=== PATIENT | female | born 1945 | race Caucasian/White ===

== ENCOUNTER → 2016-10-27 | Outpatient (CLI) | payer MEDICARE ==
[~2016-10-27] MED LIST: ASPI-COR81 M1 PO; ASPIRIN81 MG PO; ATENOLOL25 MG PO; ATIVAN0.5 MG PO; CATAFLAM50 MG PO; HYDROCODONE BIT1 T11 PO; LIPITOR20 MG PO; LISINOPRIL2.5 MG PO; LISINOPRIL5 MG PO; METFORMIN500 MG PO; PRILOSEC20 M1 PO; PRILOSEC20 MG PO; SENORMIN50 MG PO; ULTRAM50 MG PO; VICODIN 5/500 505 MG PO
[2016-10-27 08:13] LABS: HEMOGLOBIN A1c 5.4 % (4.8-5.6); MAGNESIUM 1.4 mg/dL (1.5-2.1); PHOSPHOROUS 3.4 mg/dL (2.5-4.9); POTASSIUM 4.3 mmol/L (3.5-5.1)
[2016-10-27 08:19] LABS: THYROID STIM HORMONE (HS) 1.28 uIU/ml (0.358-4.75)
[2016-10-27 09:14] LABS: VITAMIN D, 25-HYDROXY 39.9 ng/mL (30-100)
== END | disposition home or self-care (01) ==
LOC: LAB 07:08
PROVIDERS: Internal Medicine Endocrinology, Diabetes & Metabolism
DX: E11.9 Type 2 diabetes mellitus without complications (principal); I10 Essential (primary) hypertension; E78.5 Hyperlipidemia, unspecified; E04.2 Nontoxic multinodular goiter; L68.0 Hirsutism; L65.9 Nonscarring hair loss, unspecified; E66.9 Obesity, unspecified; R25.2 Cramp and spasm; R20.2 Paresthesia of skin; E53.9 Vitamin B deficiency, unspecified; E55.9 Vitamin D deficiency, unspecified

== ENCOUNTER → 2017-04-23 | Outpatient (CLI) | payer MEDICARE | END | disposition home or self-care (01) | LOC: MAMMO 07:12 | DX: Z12.31 Encounter for screening mammogram for malignant neoplasm of breast (principal) ==

== ENCOUNTER → 2017-04-27 | Outpatient (CLI) | payer MEDICARE ==
[2017-04-27 08:25] LABS: CREATININE 1.6 mg/dL (0.55-1.02); MAGNESIUM 1.8 mg/dL (1.5-2.1); POTASSIUM 4.8 mmol/L (3.5-5.1)
[2017-04-28 08:12] LABS: RHEUMATOID ARTHRITIS FACTOR <10.0 IU/mL (0.0-13.9)
== END | disposition home or self-care (01) ==
LOC: LAB 07:34
PROVIDERS: Family Medicine; Internal Medicine Endocrinology, Diabetes & Metabolism
DX: E11.9 Type 2 diabetes mellitus without complications (principal); I10 Essential (primary) hypertension; E78.5 Hyperlipidemia, unspecified; E04.2 Nontoxic multinodular goiter; L68.0 Hirsutism; E53.9 Vitamin B deficiency, unspecified; E55.9 Vitamin D deficiency, unspecified; M25.531 Pain in right wrist

== ENCOUNTER 2018-01-31 13:02 | Emergency (ER) | payer MEDICARE ==
[~2018-01-31] VITALS: Ht 165.1 cm; Wt 88.9 kg
[~2018-01-31 13:02] MED LIST changes: +METFORMIN HYD1000 MG PO
[2018-01-31 13:03] VITALS: BP 163/57
[2018-01-31] MEDS ORDERED: ALDACTONE25 MG PO (13:07)
[2018-01-31] MEDS ORDERED: LOSARTAN POTASS25 M1 PO (13:07)
[2018-01-31] MEDS ORDERED: VICTOZA 3-PAK6 MG/ML SC (13:07)
[2018-01-31] MEDS ORDERED: CRESTOR10 M1 PO (13:07)
[2018-01-31] MEDS ORDERED: BIOTIN1 M1 PO (13:08)
[2018-01-31] MEDS ORDERED: VITAMIN B121000 MC1 PO (13:08)
[2018-01-31] MEDS ORDERED: CALCIUM500 M1 PO (13:08)
[2018-01-31] MEDS ORDERED: FISH OIL CONC1000 M1 PO (13:08)
[2018-01-31] MEDS ORDERED: VITAMIN D31000 UNI1 PO (13:08)
[2018-01-31] MEDS ORDERED: SUNMARK MAGNES250 MG PO (13:09)
== END 2018-01-31 14:40 | disposition home or self-care (01) ==
LOC: ED 13:02
DX: S91.011A Laceration without foreign body, right ankle, initial encounter (principal); Z79.82 Long term (current) use of aspirin; Z79.899 Other long term (current) drug therapy; Z88.0 Allergy status to penicillin; Z88.4 Allergy status to anesthetic agent; W22.8XXA Striking against or struck by other objects, initial encounter; Y93.89 Activity, other specified; Y92.89 Other specified places as the place of occurrence of the external cause; Y99.9 Unspecified external cause status

== ENCOUNTER → 2018-07-09 | Day surgery (SDC) | payer MEDICARE, OTHER ==
[~2018-07-09] VITALS: Ht 165.1 cm; Wt 87.5 kg
[~2018-07-09] MED LIST changes: +ALDACTONE25 MG PO; +BIOTIN1 M1 PO; +CALCIUM500 M1 PO; +CRESTOR10 M1 PO; +FISH OIL CONC1000 M1 PO; +LOSARTAN POTASS25 M1 PO; +SUNMARK MAGNES250 MG PO; +VICTOZA 3-PAK6 MG/ML SC; +VITAMIN B121000 MC1 PO; +VITAMIN D31000 UNI1 PO
--- NOTE | ~2018-07-09 | PROC NOTE ---
[place], [place] PROCEDURE NOTE NAME: [id number] UNIT #: [id number] ROOM: DOCTOR: PILY MEJIAS,ADELE BIRTHDATE: [birth year] DOS: 07/09/2018 PROCEDURE: Colonoscopy. INDICATIONS: Hematochezia and history of colon polyps. Informed consent was obtained from the patient after the indication of procedure, the alternatives and potential complications were explained to her. PROCEDURE MEDICATIONS: Sedation was administered by Anesthesiology Department. Scope used was Olympus pediatric colonoscope variable stiffness GIF-180, depth of insertion was to the cecum, which was identified by the usual landmarks, appendiceal orifice, ileocecal valve and triangular fold. FINDINGS: After adequate sedation, the patient was placed in left lateral decubitus position. Rectal examination showed a normal sphincter tone and no external hemorrhoids. The scope was introduced into the rectum, then advanced to the cecum with no difficulty. The prep was adequate. Moderate left-sided diverticular disease was seen. The remaining colon mucosa appeared otherwise normal with no evidence of polyps, ulcerations or obstructing lesions. Retroflexed views in the rectum showed grade 2 internal hemorrhoids. The scope was then withdrawn after the rectum was decompressed. The patient tolerated the procedure well. IMPRESSION: 1. Moderate left-sided diverticular disease. 2. Internal hemorrhoids. 3. Normal colon mucosa, otherwise no polyps seen. PLAN: High-fiber diet and fiber supplements are advised. Repeat screening colonoscopy is recommended in 5 years. Office followup will be scheduled p.r.n. ADELE NASCIMENTO MD CM:PROCNOTE:PROCEDURE NOTE [id number] ADELE NASCIMENTO MD
[2018-07-09 09:14] VITALS: BP 124/70
[2018-07-09 09:45] VITALS: BP 108/44
[2018-07-09 10:00] VITALS: BP 113/53
[2018-07-09 10:15] VITALS: BP 107/51
== END | disposition home or self-care (01) ==
LOC: SDC 07-06 08:45
DX: K57.30 Diverticulosis of large intestine without perforation or abscess without bleeding (principal); K64.8 Other hemorrhoids; Z86.010 Personal history of colon polyps; K21.9 Gastro-esophageal reflux disease without esophagitis; E78.00 Pure hypercholesterolemia, unspecified; I10 Essential (primary) hypertension; E11.9 Type 2 diabetes mellitus without complications; F41.9 Anxiety disorder, unspecified; Z85.828 Personal history of other malignant neoplasm of skin; Z98.890 Other specified postprocedural states; Z90.710 Acquired absence of both cervix and uterus; Z79.82 Long term (current) use of aspirin; Z79.899 Other long term (current) drug therapy; Z87.891 Personal history of nicotine dependence; Z82.49 Family history of ischemic heart disease and other diseases of the circulatory system; Z98.51 Tubal ligation status; Z88.0 Allergy status to penicillin; Z88.8 Allergy status to other drugs, medicaments and biological substances

== ENCOUNTER → 2019-05-04 | Outpatient (CLI) | payer MEDICARE, OTHER | END | disposition home or self-care (01) | LOC: MRI 09:59 | DX: M47.816 Spondylosis without myelopathy or radiculopathy, lumbar region (principal); M51.26 Other intervertebral disc displacement, lumbar region; M51.36 Other intervertebral disc degeneration, lumbar region ==

== ENCOUNTER 2022-01-08 04:59 | Emergency (ER) | payer OTHER ==
[~2022-01-08] VITALS: Ht 165.1 cm; Wt 87.1 kg
[2022-01-08 06:05] LABS: BASO # 0.1 10*3/uL (0.0-0.1); BASO % 0.4 % (0.0-1.0); EOS # 0.1 10*3/uL (0.0-0.4); EOS % 0.9 % (1.0-4.0); HEMATOCRIT 41.1 % (37.0-47.0); LYMPH # 2.1 10*3/uL (1.3-4.4); LYMPH % 16.8 % (27.0-41.0); MEAN CELL VOLUME 91.3 fl (81.0-99.0); MEAN CORPUSCULAR HGB 30.7 pg (27.0-31.0); MEAN CORPUSCULAR HGB CONC 33.6 g/dl (33.0-37.0); MEAN PLATELET VOLUME 9.5 fl (9.6-12.3); MONO # 0.6 10*3/uL (0.1-1.0); MONO % 4.9 % (3.0-9.0); NEUT # 9.5 10*3/uL (2.3-7.9); NEUT % 76.4 % (47.0-73.0); PLATELET COUNT AUTOMATED 311 10*3/uL (130-400); RED CELL DISTRI WIDTH 13.3 % (0-14.5); WHITE BLOOD COUNT 12.4 10*3/uL (4.8-10.8)
[2022-01-08 06:09] VITALS: BP 162/63
[2022-01-08 06:19] LABS: ALKALINE PHOSPHATASE 68 U/L (45-117); BUN 32 mg/dl (7-24); CHLORIDE 104 mmol/L (98-107); CREATININE 1.64 mg/dL (0.55-1.02); POTASSIUM 4.2 mmol/L (3.5-5.1); SGOT/AST 15 IU/L (3-35); SGPT/ALT 27 U/L (12-78); SODIUM 138 mmol/L (136-145); TOTAL PROTEIN 7.1 gm/dL (6.4-8.2)
[2022-01-08 07:57] LABS: BILIRUBIN Negative (Negative); BLOOD 2+ (Negative); CLARITY Clear (Clear); COLOR Yellow (Yellow); GLUCOSE Negative (Negative); KETONE Negative (Negative); LEUKO ESTERASE Negative (Negative); NITRITE Negative (Negative); PH 6.5 (4.5-8.0); SPECIFIC GRAVITY 1.015 (1.001-1.030); UROBILINOGEN 0.2 E.U./dl (0.0-1.0)
[2022-01-08 08:11] LABS: BACTERIA 3+; EPITHELIAL CELLS TNTC; RBC 41-50 rbc/hpf (0-2); WBC 0-2 wbc/hpf (0-5)
== END 2022-01-08 08:53 | disposition home or self-care (01) ==
LOC: ED 04:59
PROVIDERS: Emergency Medicine
DX: N13.2 Hydronephrosis with renal and ureteral calculous obstruction (principal); Z88.0 Allergy status to penicillin; Z88.4 Allergy status to anesthetic agent; Z79.899 Other long term (current) drug therapy; Z79.82 Long term (current) use of aspirin; Z90.710 Acquired absence of both cervix and uterus; Z98.51 Tubal ligation status

== ENCOUNTER → 2022-02-19 | Outpatient (CLI) | payer MEDICARE, OTHER | END | disposition home or self-care (01) | LOC: US 02-17 14:30 | PROVIDERS: ATTEND Urology | DX: N20.0 Calculus of kidney (principal) ==

== ENCOUNTER → 2023-04-09 | Outpatient (CLI) | payer MEDICARE, OTHER | END | disposition home or self-care (01) | LOC: US 12:14 | PROVIDERS: ATTEND Urology | DX: N20.0 Calculus of kidney (principal) ==

== ENCOUNTER → 2024-02-11 | Outpatient (CLI) | payer MEDICARE, OTHER ==
[~2024-02-11] MED LIST changes: -ATIVAN0.5 MG PO; +ATIVAN1 MG PO; +HYDROCHLOROTH12.5 M2 PO; +MELATONIN10 M2 PO; +PROZAC40 M1 PO; +Regadenoson 0.4 MG/5 ML SYR IV ONE
== END | disposition home or self-care (01) ==
LOC: CARD 00:34
PROVIDERS: ATTEND Internal Medicine Cardiovascular Disease
DX: R55 Syncope and collapse (principal); R01.1 Cardiac murmur, unspecified; I10 Essential (primary) hypertension; E78.2 Mixed hyperlipidemia; Z82.49 Family history of ischemic heart disease and other diseases of the circulatory system

== ENCOUNTER → 2024-04-05 | Outpatient (CLI) | payer OTHER, MEDICARE ==
[~2024-04-05] MED LIST changes: -Regadenoson 0.4 MG/5 ML SYR IV ONE
== END | disposition home or self-care (01) ==
LOC: US 10:30
PROVIDERS: ATTEND Urology
DX: N20.0 Calculus of kidney (principal)

== ENCOUNTER → 2025-01-21 | Outpatient (CLI) | payer MEDICARE, OTHER | END | disposition home or self-care (01) | LOC: US 10:38 | PROVIDERS: ATTEND Nurse Practitioner | DX: R59.0 Localized enlarged lymph nodes (principal) ==

== ENCOUNTER → 2025-02-02 | Outpatient (CLI) | payer MEDICARE, OTHER ==
[~2025-02-02] MED LIST changes: +IOHEXOL 300 MG/ML 100 ML VIAL IV ONE; +IOHEXOL 300 MG/ML 100 ML VIAL ONE
== END | disposition home or self-care (01) ==
LOC: CT 08:42
PROVIDERS: ATTEND Nurse Practitioner
DX: R22.1 Localized swelling, mass and lump, neck (principal)

== ENCOUNTER → 2025-02-17 | Outpatient (CLI) | payer MEDICARE, OTHER ==
[~2025-02-17] MED LIST changes: -IOHEXOL 300 MG/ML 100 ML VIAL IV ONE; -IOHEXOL 300 MG/ML 100 ML VIAL ONE
== END | disposition home or self-care (01) ==
LOC: US 10:37
PROVIDERS: ATTEND Nurse Practitioner
DX: I65.23 Occlusion and stenosis of bilateral carotid arteries (principal)

== ENCOUNTER → 2025-04-05 | Outpatient (CLI) | payer MEDICARE, OTHER | LOC: US 08:03 | PROVIDERS: ATTEND Urology | DX: N20.0 Calculus of kidney (principal); N28.89 Other specified disorders of kidney and ureter ==

== ENCOUNTER → 2025-07-04 | Outpatient (CLI) | payer MEDICARE, OTHER | END | disposition home or self-care (01) | LOC: CT 08:31 | PROVIDERS: ATTEND Urology | DX: N20.0 Calculus of kidney (principal); K80.20 Calculus of gallbladder without cholecystitis without obstruction; I25.10 Atherosclerotic heart disease of native coronary artery without angina pectoris; N32.89 Other specified disorders of bladder ==